=== PATIENT | female | born 1995 | race Caucasian/White ===

== ENCOUNTER 2019-10-13 22:40 | Emergency (ER) | payer OTHER ==
[~2019-10-13] VITALS: Ht 160 cm; Wt 59.0 kg
[2019-10-13 23:00] VITALS: BP 128/58
--- NOTE | 2019-10-14 00:25 | PHYS DOC ---
Past Medical History Past Medical History: Depression (STEPHEN SAUCEDA APRN) Past Surgical History: Other Additional Past Surgical Histo: LEFT FOOT SURGERY (STEPHEN SAUCEDA APRN) Alcohol Use: Occasionally Drug Use: None (STEPHEN SAUCEDA APRN) Attending Signature I have participated in the care of this patient and I have reviewed and agree with all pertinent clinical information above including history, exam, and recommendations. (LUIS ANTONIO MCKAY MD) Adult General Chief Complaint Chief Complaint: FOOT INJURY PAIN HPI HPI Patient is a 24 year old female who presents to the emergency department with complaints of swelling and bruising to her lower left lateral leg. Patient states that she injured herself on Monday while she was at work. She denies any numbness, tingling, or weakness of the affected extremity. She currently rates her pain a 5 out of 10 on the pain scale, the pain improves when she is resting, however when she applies pressure or bears weight on the affected extremity the pain increases. All other ROS is neg unless otherwise noted in HPI. (STEPHEN SAUCEDA APRN) Review of Systems Review of Systems See Above (STEPHEN SAUCEDA APRN) Allergies Allergies Allergies Coded Allergies Type Severity Reaction Last Updated Verified Penicillins Allergy Unknown 10/13/19 Yes (LUIS ANTONIO MCKAY MD) Allergies See Above (STEPHEN SAUCEDA APRN) Physical Exam Physical Exam Constitutional: Well developed, well nourished, no acute distress, non-toxic appearance. [] HENT: Normocephalic, atraumatic, bilateral external ears normal, nose normal. [] Eyes: PERRLA, EOMI, conjunctiva normal, no discharge. [] Neck: Normal range of motion, no stridor. [] Cardiovascular:Heart rate regular rhythm Lungs & Thorax: Respirations even and unlabored, no retractions, no respiratory distress Skin: Warm, dry, no erythema, no rash. [] Back: No tenderness, no CVA tenderness; bruising noted to bilateral lower left leg. [] Extremities: lateral lower left leg tenderness to palpation, no crepitus, no d eformity, no warmth, no cyanosis, no clubbing, ROM intact, 1+ edema Neurologic: Alert and oriented X 3, no focal deficits noted. [] Psychologic: Affect normal, judgement normal, mood normal. [] (STEPHEN SAUCEDA APRN) Current Patient Data Vital Signs Vital Signs Date Time Temp Pulse Resp B/P (MAP) Pulse Ox O2 Delivery O2 Flow Rate FiO2 10/13/19 23:00 98.3 99 12 128/58 (81) 99 Room Air 98.3 (LUIS ANTONIO MCKAY MD) EKG EKG [] (STEPHEN SAUCEDA APRN) Radiology/Procedures Radiology/Procedures L tib/fib x-ray negative for acute fx or findings, read by Dr. Mckay[] (STEPHEN SAUCEDA APRN) Course & Med Decision Making Course & Med Decision Making Pertinent Labs and Imaging studies reviewed. (See chart for details) [] (STEPHEN SAUCEDA APRN) Dragon Disclaimer Dragon Disclaimer This electronic medical record was generated, in whole or in part, using a voice recognition dictation system. (STEPHEN SAUCEDA APRN) Departure Departure Impression: Primary Impression: Contusion of left lower leg, initial encounter Disposition: 01 HOME, SELF-CARE Condition: STABLE Referrals: CARMENZA GOMEZ (PCP) Patient Instructions: Contusion, [id number] Additional Instructions: You may take Tylenol or ibuprofen as needed for pain. Recommend application of ice, elevation, and rest of affected extremity. Follow-up with your primary care doctor if symptoms persist. Return to the ER if your symptoms worsen. STEPHEN SAUCEDA APRN Oct 14, 2019 00:25 LUIS ANTONIO MCKAY MD Oct 14, 2019 04:37
--- NOTE | 2019-10-14 08:01 | RAD ---
TIBIA FIBULA LEFT History: Left leg pain since injury 10/11/2019 Comparison: None. Findings: 4 views of left tibia-fibula are submitted. No acute fracture or dislocation is identified of the left tibia or fibula. There is mild lucency of the navicular bone in the foot. Impression: 1. No acute osseous abnormality is identified of the left tibia or fibula by radiographs. There is some nonspecific lucency of the visualized navicular bone in the foot, correlation with any pain at this location advised. Electronically signed by: Pratik Lau MD (10/14/2019 7:58 AM) [facility] [id number]
== END 2019-10-14 00:41 | disposition home or self-care (01) ==
LOC: ER 22:41
DX: S80.12XA Contusion of left lower leg, initial encounter (principal); Z88.0 Allergy status to penicillin; X58.XXXA Exposure to other specified factors, initial encounter; Y93.89 Activity, other specified; Y92.89 Other specified places as the place of occurrence of the external cause; Y99.0 Civilian activity done for income or pay
CPT/HCPCS: 73590; 99284